=== PATIENT | male | born 1980 ===

== ENCOUNTER 2018-08-16 10:30 | Emergency (ER) | payer BC, OTHER ==
--- NOTE | 2018-08-16 12:41 | C.PDOC ---
History Of Present Illness 38 y/o male presents to the ER complaining of generalized rash which has been present for the past 3 weeks. Patient states that the symptoms began after he changed his brand of detergent. Patient reports that has has been taking Benadryl without relief at home. Denies having fever,chills, itchy throat, throat swelling, CP,SOB, nausea, and vomiting. Time Seen by Provider: 08/16/18 12:07 Chief Complaint (Nursing): Allergic Reaction History Per: Patient History/Exam Limitations: no limitations Onset/Duration Of Symptoms: Days Current Symptoms Are (Timing): Still Present Associated Symptoms: Skin Rash Home/EMS Treatment: Benadryl Severity: Moderate Past Medical History Reviewed: Historical Data, Nursing Documentation, Vital Signs Vital Signs: Last Vital Signs Temp 98.2 F 08/16/18 10:55 Pulse 78 08/16/18 10:55 Resp 18 08/16/18 10:55 BP 108/75 08/16/18 10:55 Pulse Ox 97 08/16/18 10:55 - Medical History PMH: No Chronic Diseases Surgical History: No Surg Hx Family History: States: No Known Family Hx - Social History Hx Alcohol Use: No Hx Substance Use: No - Immunization History Hx Tetanus Toxoid Vaccination: No Hx Influenza Vaccination: No Hx Pneumococcal Vaccination: No Review Of Systems Except As Marked, All Systems Reviewed And Found Negative. Constitutional: Negative for: Fever, Chills ENT: Negative for: Throat Pain, Throat Swelling Cardiovascular: Negative for: Chest Pain Respiratory: Negative for: Shortness of Breath Gastrointestinal: Negative for: Nausea, Vomiting Skin: Positive for: Rash Physical Exam - Physical Exam Appears: Non-toxic, No Acute Distress, Other (awake,alert,orientedx3) Skin: Warm, Dry, Rash (diffuse urticaria to bilateral axillas, lower abdomen, groin, and bilateral medial thighs), Other (no cellulitic changes, no pustules, no excoriations) Head: Atraumatic, Normacephalic Eye(s): bilateral: Normal Inspection Nose: Normal Oral Mucosa: Moist Tongue: Normal Appearing, No Swelling Lips: No Swelling Throat: Normal, No Erythema, No Exudate, Other (uvula midline) Neck: Supple Chest: Symmetrical Cardiovascular: Rhythm Regular Respiratory: Normal Breath Sounds, No Rales, No Rhonchi, No Wheezing Neurological/Psych: Oriented x3, Normal Speech ED Course And Treatment O2 Sat by Pulse Oximetry: 97 (RA) Pulse Ox Interpretation: Normal Medical Decision Making Medical Decision Making: Plan: --Prednisone PO --Pepcid PO Updates: Pt re-evaluated. States feeling much better. Rash much improved. No longer itching. Pt denies any complaints at this time. Understands and agrees to immediately return to the ER if having return/worsening of rash, fevers, burning with urination, or eye irritation/pain, or any other concerning, worsening, new or continued symptoms. States will follow up with doctor in 1-2 days. States will call [facility] for appointment. Patient states feeling better and would like to go home. Patient is very well appearing and non-toxic. Vital signs are stable. I discussed the results of the work-up, diagnosis and treatment. I instructed patient to use prior detergent and rewash the clothes using prior detergent. Written discharge instructions were provided to patient. Additional verbal instructions were given and discussed with patient. We discussed the importance of follow up with PCP/consultants. I also reiterated reasons to immediately return to the ER including: worsening in current symptoms and/or new, continued, or concerning symptoms. Pt understood and agreed Disposition Counseled Patient/Family Regarding: Diagnosis, Need For Followup - Disposition Referrals: [facility] [Outside] [facility] [Outside] Disposition: HOME/ ROUTINE Disposition Time: 12:41 Condition: GOOD Prescriptions: Famotidine [Pepcid] 20 mg PO DAILY #10 tab Methylprednisolone [Medrol Dose Pack (21 tabs)] 4 mg PO DAILY #21 mg Instructions: Contact Dermatitis (DC), Hives (DC) Forms: Gen Discharge Inst Liberian, [employer] (Liberian) Print Language: SETSWA[place] - POA Present On Arrival: None - Clinical Impression Clinical Impression: Allergic urticaria, Allergic contact dermatitis - Scribe Statement The provider has reviewed the documentation as recorded by the Golden Cabezas Provider Attestation: All medical record entries made by the Golden were at my direction and personally dictated by me. I have reviewed the chart and agree that the record accurately reflects my personal performance of the history, physical exam, medical decision making, and the department course for this patient. I have also personally directed, reviewed, and agree with the discharge instructions and disposition.
[2018-08-16 12:53] VITALS: BP 114/77; PULSE 69; RESP 20; TEMP 97.6
[2018-08-16 13:03] VITALS: O2SAT 97
== END 2018-08-16 12:51 | disposition home or self-care (01) ==
LOC: C.ER 10:30
DX: L23.9 Allergic contact dermatitis, unspecified cause (principal)